=== PATIENT | female | born 1945 | race Caucasian/White ===

== ENCOUNTER 2018-11-29 17:16 | Inpatient (IN) | payer MEDICARE, BC ==
[~2018-11-29] VITALS: Ht 162.6 cm; Wt 95.3 kg
[2018-11-29] MEDS ORDERED: HYDROCODON-ACE1 EA10 PO (18:00)
[2018-11-29] MEDS ORDERED: PHENERGAN25 M1 (18:00)
[2018-11-29] MEDS ORDERED: VITAMIN B-121000 MCG PO (18:00)
[2018-11-29] MEDS ORDERED: CELEXA40 MG PO (18:01)
[2018-11-29] MEDS ORDERED: KLOR-CON 1010 MEQ PO (18:01)
[2018-11-29] MEDS ORDERED: ALDACTONE25 MG PO (18:01)
[2018-11-29] MEDS ORDERED: ZYLOPRIM300 MG PO (18:01)
[2018-11-29] MEDS ORDERED: PEPCID40 MG PO (18:02)
[2018-11-29] MEDS ORDERED: DONEPEZIL HCL10 MG PO (18:02)
[2018-11-29] MEDS ORDERED: CYTOTEC100 MCG PO (18:02)
[2018-11-29] MEDS ORDERED: BUSPAR10 MG PO (18:02)
[2018-11-29] MEDS ORDERED: VOLTAREN75 MG PO (18:03)
[2018-11-29] MEDS ORDERED: COLCRYS0.6 MG PO (18:03)
[2018-11-29] MEDS ORDERED: FERROUS SULFAT325 MG PO (18:03)
[2018-11-29] MEDS ORDERED: SYNTHROID200 MC1 PO (18:04)
[2018-11-29] MEDS ORDERED: CALCIUM 600 +1 EAC3 PO (18:05)
[2018-11-29] MEDS ORDERED: BUMEX2 MG (18:05)
[2018-11-29] MEDS ORDERED: NYSTATIN15 GM TOPICAL (18:05)
[2018-11-29] MEDS ORDERED: ASPIRIN325 MG PO (18:05)
[2018-11-29] MEDS ORDERED: NEURONTIN 300300 MG PO (18:06)
[2018-11-29] MEDS ORDERED: FOLIC ACID0.8 MG PO (18:06)
[2018-11-29] MEDS ORDERED: COLACE100 MG PO (18:06)
[2018-11-29 18:08] LABS: BASOPHILS 0.2 % (0-2); EOSINOPHILS 0.1 % (0-7); HEMATOCRIT 40.2 % (36.0-48.0); HEMOGLOBIN 13.5 g/dL (12-16); IMMATURE GRANULOCYTES 0.2 % (0-5); LYMPHOCYTES 6.4 % (15-50); MCH 30.5 pg (26.0-34.0); MCHC 33.6 g/dL (31.0-37.0); MEAN PLATELET VOLUME 10.5 fL (7.4-10.4); MONOCYTES 7.3 % (2-11); NEUTROPHILS 85.8 % (40-80); RBC 4.42 10x6/uL (4.00-5.40); RDW 13.6 % (11.5-14.5); WBC 12.5 10x3/uL (4.8-10.8)
[2018-11-29 18:20] LABS: PLATELET COUNT 145 10x3/uL (130-400)
[2018-11-29 18:24] LABS: APTT 34.6 SECONDS (22.8-39.4); INR 1.27 (0.85-1.17); PROTIME 15.3 SECONDS (11.6-15.0)
[2018-11-29 18:30] LABS: ALBUMIN 2.6 g/dL (3.4-5.0); ALKALINE PHOSPHATASE 130 U/L (46-116); ALT (SGPT) 24 U/L (10-68); BILIRUBIN - TOTAL 0.82 mg/dL (0.2-1.3); CALC OSMOLALITY 272 mosm/kg (275-300); CALCIUM 8.4 mg/dL (8.5-10.1); CARBON DIOXIDE 27.7 mmol/L (21.0-32.0); CHLORIDE - SERUM 99 mmol/L (98-107); CREATININE - SERUM 0.7 mg/dL (0.6-1.3); GLUCOSE 116 mg/dL (74-106); POTASSIUM - SERUM 3.9 mmol/L (3.5-5.1); PROTEIN - SERUM 6.1 g/dL (6.4-8.2); SODIUM 136 mmol/L (136-145); UREA NITROGEN 12 mg/dL (7-18); eGFR NON AFRICAN AMERICAN 86 mL/min (90-120)
[2018-11-29 18:41] LABS: CKMB 0.2 U/L (0.0-3.6); CREATINE KINASE 60 UL (21-215); PRO BNP 790 pg/mL (0-450); TROPONIN-I < 0.017 ng/mL (0.000-0.060)
--- NOTE | 2018-11-29 19:16 | NUR ---
RT AT BEDSIDE FOR [place]IL[place]AM[place].
[2018-11-29 19:58] VITALS: BP 159/72
[2018-11-29 21:32] VITALS: BP 150/82; BMI 36.1
--- NOTE | 2018-11-29 21:57 | NUR ---
RECEIVED TO ROOM. AWAKE,ALERT.COMPLAINTS SOB AND PNEUMONIA. O2 @ 2L PER NC ON. NO DISTRESS NOTED. SL TO RFA WITHOUT REDNESS OR EDEMA NOTED. ORIENTED TO ROOM. CL IN REACH
[2018-11-30 01:14] VITALS: BP 140/72
[2018-11-30 05:14] LABS: APPEARANCE CLEAR (CLEAR); BILIRUBIN NEGATIVE (NEGATIVE); COLOR YELLOW (YELLOW); GLUCOSE NEGATIVE (NEGATIVE); KETONE SMALL mg/dL (NEGATIVE); NITRITE NEGATIVE (NEGATIVE); PROTEIN NEGATIVE (NEGATIVE); UROBILINOGEN NORMAL (NORMAL)
[2018-11-30 05:38] VITALS: BP 144/80
[2018-11-30 07:34] VITALS: BMI 36.0
[2018-11-30 07:59] LABS: BASOPHILS 0 % (0-2); EOSINOPHILS 0 % (0-7); HEMATOCRIT 40.7 % (36.0-48.0); HEMOGLOBIN 13.6 g/dL (12-16); IMMATURE GRANULOCYTES 0.2 % (0-5); LYMPHOCYTES 3.8 % (15-50); MCH 30.6 pg (26.0-34.0); MCHC 33.4 g/dL (31.0-37.0); MCV 91.7 fL (80.0-100.0); MEAN PLATELET VOLUME 10.6 fL (7.4-10.4); MONOCYTES 1.7 % (2-11); NEUTROPHILS 94.3 % (40-80); PLATELET COUNT 160 10x3/uL (130-400); RBC 4.44 10x6/uL (4.00-5.40); RDW 13.8 % (11.5-14.5); WBC 13.3 10x3/uL (4.8-10.8)
[2018-11-30 08:22] LABS: ALBUMIN 2.5 g/dL (3.4-5.0); ALKALINE PHOSPHATASE 132 U/L (46-116); ALT (SGPT) 26 U/L (10-68); BILIRUBIN - TOTAL 0.37 mg/dL (0.2-1.3); CALC OSMOLALITY 281 mosm/kg (275-300); CALCIUM 9.3 mg/dL (8.5-10.1); CARBON DIOXIDE 30.5 mmol/L (21.0-32.0); CHLORIDE - SERUM 101 mmol/L (98-107); CREATININE - SERUM 0.7 mg/dL (0.6-1.3); GLUCOSE 147 mg/dL (74-106); MAGNESIUM - SERUM 2.2 mg/dL (1.8-2.4); PHOSPHOROUS 3.2 mg/dL (2.5-4.9); PRO BNP 405 pg/mL (0-450); PROTEIN - SERUM 6.3 g/dL (6.4-8.2); SODIUM 139 mmol/L (136-145); UREA NITROGEN 14 mg/dL (7-18); eGFR NON AFRICAN AMERICAN 86 mL/min (90-120)
[2018-11-30 09:40] VITALS: BP 132/72
--- NOTE | 2018-11-30 12:27 | NUR ---
Profore wraps removed from bilateral lower legs. Skin cleaned and dried. Legs elevated. Pt goes to [facility] wound clinic every other week for wrap changes. Pt states they are used for swelling. There are no open wounds. Plan is to keep wraps off while in hospital and keep legs elevated so edema doesn't return. She will then return to wound clinic after her discharge.
[2018-11-30 13:03] VITALS: BP 153/86
--- NOTE | 2018-11-30 13:53 | NUR ---
PATIENT BACK IN BED. LEGS ELEVATED ON PILLOW AND WITH BED CONTROLS. CL AND PHONE IN REACH. NO FURTHER NEEDS AT THIS TIME.
[2018-11-30 16:26] VITALS: BP 163/77
[2018-11-30 20:26] VITALS: BP 159/77
--- NOTE | 2018-12-01 | NUR ---
RIGHT FOREARM IV TENDER AND DIFFICULT TO FLUSH. REMOVED CATHETER INTACT. RESITED 22 G TO RIGHT FOREARM 1ST ATTEMPT. ASSISTED PT UP TO BATHROOM TO VOID AND HAD MEDIUM LOOSE STOOL. NO OTHER NEEDS. WILL CONTINUE TO MONITOR.
[2018-12-01 00:48] VITALS: BP 126/75
[2018-12-01 05:05] LABS: BASOPHILS 0 % (0-2); EOSINOPHILS 0 % (0-7); HEMOGLOBIN 13.2 g/dL (12-16); IMMATURE GRANULOCYTES 0.2 % (0-5); LYMPHOCYTES 5.3 % (15-50); MCH 30.7 pg (26.0-34.0); MCHC 33.8 g/dL (31.0-37.0); MCV 90.7 fL (80.0-100.0); MEAN PLATELET VOLUME 10.8 fL (7.4-10.4); MONOCYTES 2.6 % (2-11); NEUTROPHILS 91.9 % (40-80); PLATELET COUNT 178 10x3/uL (130-400); RDW 13.5 % (11.5-14.5); WBC 14.4 10x3/uL (4.8-10.8)
[2018-12-01 05:17] VITALS: BP 157/78
[2018-12-01 05:23] LABS: CALC OSMOLALITY 281 mosm/kg (275-300); CALCIUM 8.9 mg/dL (8.5-10.1); CARBON DIOXIDE 31.2 mmol/L (21.0-32.0); CHLORIDE - SERUM 101 mmol/L (98-107); CREATININE - SERUM 0.7 mg/dL (0.6-1.3); GLUCOSE 158 mg/dL (74-106); MAGNESIUM - SERUM 1.9 mg/dL (1.8-2.4); SODIUM 138 mmol/L (136-145); UREA NITROGEN 20 mg/dL (7-18); eGFR NON AFRICAN AMERICAN 86 mL/min (90-120)
[2018-12-01 08:08] VITALS: BP 143/73
--- NOTE | 2018-12-01 11:12 | NUR ---
PT ALERT X 4. BREATH SOUNDS DIMINISHED TO RLL, 2L O2 PER NC, NON-PRODUCTIVE COUGH. TELEMETRY IN PLACE. IV TO RIGHT WRIST, SALINE LOCKED. PT REPORTING NO PAIN AT THIS TIME. BED LOW, CALL LIGHT IN REACH. NO OTHER NEEDS AT THIS TIME.
[2018-12-01 12:24] VITALS: BP 113/57
[2018-12-01 17:24] VITALS: BP 107/55
[2018-12-01 20:58] VITALS: BP 147/75
[2018-12-02 00:48] VITALS: BP 154/69
[2018-12-02 05:24] VITALS: BP 174/85
[2018-12-02 05:33] LABS: BASOPHILS 0 % (0-2); EOSINOPHILS 0 % (0-7); HEMATOCRIT 38.7 % (36.0-48.0); HEMOGLOBIN 12.6 g/dL (12-16); IMMATURE GRANULOCYTES 0.6 % (0-5); LYMPHOCYTES 5.9 % (15-50); MCH 29.6 pg (26.0-34.0); MCHC 32.6 g/dL (31.0-37.0); MCV 91.1 fL (80.0-100.0); MONOCYTES 2.6 % (2-11); NEUTROPHILS 90.9 % (40-80); PLATELET COUNT 201 10x3/uL (130-400); RBC 4.25 10x6/uL (4.00-5.40); RDW 13.7 % (11.5-14.5); WBC 10.8 10x3/uL (4.8-10.8)
[2018-12-02 05:42] LABS: CALC OSMOLALITY 285 mosm/kg (275-300); CALCIUM 8.5 mg/dL (8.5-10.1); CARBON DIOXIDE 31.7 mmol/L (21.0-32.0); CHLORIDE - SERUM 102 mmol/L (98-107); CREATININE - SERUM 0.7 mg/dL (0.6-1.3); GLUCOSE 134 mg/dL (74-106); MAGNESIUM - SERUM 1.8 mg/dL (1.8-2.4); PHOSPHOROUS 3.7 mg/dL (2.5-4.9); SODIUM 141 mmol/L (136-145); UREA NITROGEN 22 mg/dL (7-18); eGFR NON AFRICAN AMERICAN 86 mL/min (90-120)
[2018-12-02 08:34] VITALS: BP 154/64
--- NOTE | 2018-12-02 10:02 | NUR ---
PT ALERT X 4. BREATH SOUNDS DIMINISHED TO LOWER LOBES, 2L O2 PER NC. TELEMETRY IN PLACE. IV TO RIGHT WRIST, PATENT, DRESSING CDI. PT REPORTING PAIN OF 6/10, WILL MONITOR. FEET ELEVATED. BED LOW, CALL LIGHT IN REACH. NO OTHER NEEDS AT THIS TIME.
[2018-12-02 12:14] VITALS: BP 139/73
--- NOTE | 2018-12-02 12:55 | MORECARE ---
CASE MANAGEMENT DISCHARGE SUMMARY PATIENT: ULYSSES ESTRADA UNIT: [id number] ADM DATE: 11/29/18 AGE: 73 : 43 SEX: F ROOM/BED: D.2214 AUTHOR: AMANDA SHERWOOD PHYSICIAN: REFERRING PHYSICIAN: ROSANA SPEAR MD DATE OF SERVICE: 12/02/18 Discharge Plan Patient Name: ULYSSES ESTRADA Facility: [facility]:[place] : 1945 Planned Disposition: Home Hlth Svc w Plan Readm Anticipated Discharge Date: Discharge Date: Expected LOS: Initial Reviewer: [email or web address] Initial Review Date: 12/02/2018 Generated: 12/02/18 1:55 pm Comments DCP- Discharge Planning Updated by [id number]: Dea Vaca on 12/02/18 11:[address] Patient Name: ULYSSES ESTRADA Admission Status: ER Accout number: [id number] Admission Date: 11-29-2018 : 1945 Admission Diagnosis: Attending: ROSANA SPEAR Current LOS: 3 Anticipated DC Date: Planned Disposition: Home Hlth Svc w Plan Readm Primary Insurance: MEDICARE A & B Discharge Planning Comments: CM met with patient at bedside after explaining CM role and obtaining verbal consent. CM discussed availability / needs of home health and medical equipment. [facility] has a walker at home and [facility] with [facility]. [facility] would like to resume [facility]. Lives at home and has a roommate. Environment is safe. CM to follow and assist. Career Services Officer: Dea Vaca DCPIA - Discharge Planning Initial Assessment Updated by [email or web address]: Dea Vaca on 12/02/18 12:50 pm * Is the patient Alert and Oriented? Yes * PCP BRYAN * Pharmacy [facility] * Preadmission Environment Home with Family * ADLs Independent * Other Equipment WALKER * Community resources currently utilized Home Health * Please name any agencies selected above. [facility] * Additional services required to return to the preadmission environment? No * Can the patient safely return to the preadmission environment? Yes * Has this patient been hospitalized within the prior 30 days at any hospital? No Patient Name: ULYSSES ESTRADA Page [phone] at 1255 All edits/amendments must be made on the electronic document DICTATION DATE: 12/02/18 1255 HEMATOLOGY NURSE: KAMALJIT 12/02/18 1258 RPT#: [id number] DC DATE: STATUS: ADM IN [facility] [address] [place] [address] END OF REPORT
[2018-12-02 17:04] VITALS: BP 140/59
[2018-12-02 20:00] VITALS: BP 164/78
--- NOTE | 2018-12-02 21:00 | NUR ---
PT A/O WITH NO SIGNS OF ACUTE DISTRESS. NC @ 2L AND IV TO RT WRIST, CDI. FEET ELEVATED ON PILLOW. PT DENIES PAIN OR OTHER NEEDS AT THIS TIME. CONTIUE WITH PLAN OF CARE.
[2018-12-03] VITALS: BP 144/69
[2018-12-03 05:28] VITALS: BP 110/74
[2018-12-03 08:12] LABS: BASOPHILS 0.1 % (0-2); EOSINOPHILS 0 % (0-7); HEMATOCRIT 42.3 % (36.0-48.0); IMMATURE GRANULOCYTES 1.6 % (0-5); LYMPHOCYTES 8.9 % (15-50); MCH 30.2 pg (26.0-34.0); MCHC 33.1 g/dL (31.0-37.0); MCV 91.2 fL (80.0-100.0); MEAN PLATELET VOLUME 10.6 fL (7.4-10.4); MONOCYTES 2.7 % (2-11); NEUTROPHILS 86.7 % (40-80); PLATELET COUNT 204 10x3/uL (130-400); RBC 4.64 10x6/uL (4.00-5.40); RDW 13.6 % (11.5-14.5); WBC 9.8 10x3/uL (4.8-10.8)
[2018-12-03 08:26] LABS: CALC OSMOLALITY 270 mosm/kg (275-300); CALCIUM 8.6 mg/dL (8.5-10.1); CARBON DIOXIDE 36.1 mmol/L (21.0-32.0); CHLORIDE - SERUM 98 mmol/L (98-107); CREATININE - SERUM 0.7 mg/dL (0.6-1.3); GLUCOSE 130 mg/dL (74-106); MAGNESIUM - SERUM 1.8 mg/dL (1.8-2.4); PHOSPHOROUS 3.8 mg/dL (2.5-4.9); POTASSIUM - SERUM 3.7 mmol/L (3.5-5.1); SODIUM 133 mmol/L (136-145); UREA NITROGEN 21 mg/dL (7-18); VANCOMYCIN - TROUGH 11.6 ug/mL (10.0-20.0); eGFR NON AFRICAN AMERICAN 86 mL/min (90-120)
[2018-12-03 08:55] VITALS: BP 157/69
--- NOTE | 2018-12-03 09:28 | NUR ---
Nutrition follow-up: Diet: heart healthy PO intake 50-75% of meals Labs reviewed WT: 209# Will continue to provide food choices and honor food preferences RDN following.
--- NOTE | 2018-12-03 10:10 | NUR ---
PT ALERT X 4. BREATH SOUNDS DIMINISHED TO RLL, 2L O2 PER NC. IV TO RIGHT WRIST, PATENT, DRESSING CDI. PT REPORTING PAIN OF 8/10, MEDICATED PER ORDERS, WILL MONITOR. FEET ELEVATED. TELEMETRY IN PLACE. BED LOW, CALL LIGHT IN REACH. NO OTHER NEEDS AT THIS TIME.
[2018-12-03 12:27] VITALS: BP 155/82
[2018-12-03 16:25] VITALS: BP 147/67
[2018-12-03 20:00] VITALS: BP 143/71
[2018-12-04 00:59] VITALS: BP 163/80
--- NOTE | 2018-12-04 02:02 | NUR ---
PT RESTING IN BED. EYES CLOSED. NO SIGNS OF DISTRESS. BREATHING EVEN AND UNLABORED. IV SITE RT FA DRESSING CLEAN DRY AND INTACT. NO SIGNS OF INFECTION. 2LO2 NASAL CANNULA. BOWEL SOUNDS ACTIVE. SKIN CLEAN DRY AND INTACT. LEG ELEVATED. WILL CONTINUE PLAN OF CARE. CALL LIGHT IN REACH. BED LOWERED AND LOCKED. BED RAILS UPX2.
--- NOTE | 2018-12-04 04:24 | NUR ---
I have reviewed this patient and I concur with the Shift Assessment completed by the Licensed Practical Nurse today this shift.
[2018-12-04 04:50] LABS: BASOPHILS 0.1 % (0-2); EOSINOPHILS 0 % (0-7); HEMATOCRIT 39.8 % (36.0-48.0); HEMOGLOBIN 13.1 g/dL (12-16); IMMATURE GRANULOCYTES 2.7 % (0-5); LYMPHOCYTES 7.1 % (15-50); MCH 29.8 pg (26.0-34.0); MCHC 32.9 g/dL (31.0-37.0); MCV 90.7 fL (80.0-100.0); MEAN PLATELET VOLUME 10.8 fL (7.4-10.4); MONOCYTES 2.3 % (2-11); NEUTROPHILS 87.8 % (40-80); PLATELET COUNT 218 10x3/uL (130-400); RBC 4.39 10x6/uL (4.00-5.40); RDW 13.3 % (11.5-14.5); WBC 11.3 10x3/uL (4.8-10.8)
[2018-12-04 05:06] LABS: CALC OSMOLALITY 282 mosm/kg (275-300); CALCIUM 8.4 mg/dL (8.5-10.1); CHLORIDE - SERUM 101 mmol/L (98-107); CREATININE - SERUM 0.7 mg/dL (0.6-1.3); GLUCOSE 157 mg/dL (74-106); PHOSPHOROUS 3.6 mg/dL (2.5-4.9); SODIUM 138 mmol/L (136-145); UREA NITROGEN 25 mg/dL (7-18); eGFR NON AFRICAN AMERICAN 86 mL/min (90-120)
[2018-12-04 05:08] VITALS: BP 160/76
--- NOTE | 2018-12-04 07:38 | NUR ---
ALERT AND ORIENTED. LUNGS SLIGHTLY DIMINISHED BILATERALLY. HEART SOUNDS S1 AND S2 HEARD IN ALL SANCHEZ. BOWEL SOUNDS ACTIVE X 4. SKIN INTACT WITHOUT REDNESS. IV TO RFA SL PATENT WITHOUT REDNESS. O2 IN PLACE AT 2L. TELEMETRY IN PLACE. DENIES PAIN. DENIES NEEDS. BED LOW. CALL HENNING AND PERSONAL ITEMS IN REACH. WILL CONTINUE TO MONITOR.
[2018-12-04 08:56] VITALS: BP 150/66
--- NOTE | 2018-12-04 10:41 | NUR ---
SITTING IN CHAIR AT BEDSIDE. DENIES NEEDS. WILL CONTINUE TO MONITOR.
--- NOTE | 2018-12-04 12:44 | NUR ---
EDUCATION PROVIDED ON NEED FOR SPUTUM. COLLECTION CONTAINER PLACED IN ROOM. VERBALIZED UNDERSTANDING.
--- NOTE | 2018-12-04 12:54 | NUR ---
SITTING IN CHAIR AT BEDSIDE. DENIES PAIN. DENIES NEEDS. FRIEND IN ROOM. WILL CONTINUE TO MONITOR.
[2018-12-04 12:55] VITALS: BP 177/80
--- NOTE | 2018-12-04 15:45 | NUR ---
RESTING IN BED. DENIES PAIN. DENIES NEEDS. WILL CONTINUE TO MONITOR.
[2018-12-04 16:45] VITALS: BP 149/71
[2018-12-04 20:00] VITALS: BP 155/70
[2018-12-05] VITALS: BP 173/86
--- NOTE | 2018-12-05 03:27 | NUR ---
PT RESTING IN BED. EYES CLOSED. NO SINGS OF DISTRESS. BREATHING EVEN AND UNLABORED. IV SITE RT FA DRESSING CLEAN DRY AND INTACT. NO SIGNS OF INFECTION. SKIN CLEAN DRY AND INTACT. 2LO2 NASAL CANNULA. BOWEL SOUNDS ACTIVE. TELE MONITOR ON 45 SIN[address] K[address]EB. WILL CONTINUE PLAN OF CARE. CALL LIGHT IN REACH. BED LOWERED AND LOCKED. BED RAILS UP X2.
[2018-12-05 04:00] VITALS: BP 140/71
--- NOTE | 2018-12-05 04:34 | NUR ---
I have reviewed this patient and I concur with the Shift Assessment completed by the Licensed Practical Nurse today this shift.
[2018-12-05 06:14] LABS: BASOPHILS 0.1 % (0-2); EOSINOPHILS 0.3 % (0-7); HEMATOCRIT 40.2 % (36.0-48.0); HEMOGLOBIN 13.5 g/dL (12-16); IMMATURE GRANULOCYTES 4.2 % (0-5); LYMPHOCYTES 9.6 % (15-50); MCH 30.2 pg (26.0-34.0); MCHC 33.6 g/dL (31.0-37.0); MCV 89.9 fL (80.0-100.0); MEAN PLATELET VOLUME 10.8 fL (7.4-10.4); MONOCYTES 7.3 % (2-11); NEUTROPHILS 78.5 % (40-80); PLATELET COUNT 218 10x3/uL (130-400); RBC 4.47 10x6/uL (4.00-5.40); RDW 13.4 % (11.5-14.5)
[2018-12-05 06:17] LABS: WBC 17.2 10x3/uL (4.8-10.8)
[2018-12-05 06:26] LABS: CALC OSMOLALITY 283 mosm/kg (275-300); CARBON DIOXIDE 29.1 mmol/L (21.0-32.0); CHLORIDE - SERUM 104 mmol/L (98-107); CREATININE - SERUM 0.7 mg/dL (0.6-1.3); MAGNESIUM - SERUM 2.1 mg/dL (1.8-2.4); PHOSPHOROUS 3.4 mg/dL (2.5-4.9); POTASSIUM - SERUM 4.3 mmol/L (3.5-5.1); SODIUM 140 mmol/L (136-145); UREA NITROGEN 26 mg/dL (7-18); eGFR NON AFRICAN AMERICAN 86 mL/min (90-120)
[2018-12-05 06:27] LABS: GLUCOSE 90 mg/dL (74-106)
[2018-12-05 07:59] VITALS: BP 136/79
--- NOTE | 2018-12-05 10:50 | NUR ---
PT RESTING IN BED. NO SIGNS OF DISTRESS. IV TO RIGHT FORARM PATENT NO REDNESS OR TENDERNESS. ON 2L NC. ON TELEMETRY 67 SR. DENIES ANY FURTHER NEED AT THIS TIME. CALL LIGHT IN REACH. BED LOW POSITION. NO FAMILY AT BEDSIDE AT THIS TIME.
[2018-12-05 11:10] LABS: IMMUNOGLOBULIN A 106 mg/dL (64-422); IMMUNOGLOBULIN G 401 mg/dL (700-1600)
[2018-12-05 11:55] VITALS: BP 147/78
[2018-12-05 16:01] VITALS: BP 131/81
--- NOTE | 2018-12-05 19:04 | NUR ---
I have reviewed this patient and I concur with the Shift Assessment completed by the Licensed Practical Nurse today this shift.
[2018-12-05 21:09] VITALS: BP 134/80
[2018-12-06] VITALS (7 sets, daily range): BP systolic 128–154; BP diastolic 57–79; Ht 162.6 cm; Wt 95.3 kg
--- NOTE | 2018-12-06 04:12 | NUR ---
I have reviewed this patient and I concur with the Shift Assessment completed by the Licensed Practical Nurse today this shift.
--- NOTE | 2018-12-06 04:36 | NUR ---
PT RESTING IN BED. EYES CLOSED. NO SIGNS OF DISTRESS. BREATHING EVEN AND UNLABORED. IV SITE RT FA DRESSING CLEAN DRY AND INTACT. NO SIGNS OF INFECTION. 2LO2 NASAL CANNULA. TELE MONITOR ON 65 SINUS. BOWEL SOUNDS ACTIVE. NO LOWER LEG SWELLING PRESENT. LEG ELEVATED ON PILLOWS. WILL CONITNUE PLAN OF CARE. CALL LIGHT IN REACH. BED LOWERED AND LOCKED. BED RAILS UPX2.
[2018-12-06 06:43] LABS: HEMATOCRIT 38.1 % (36.0-48.0); HEMOGLOBIN 12.4 g/dL (12-16); MCH 29.7 pg (26.0-34.0); MCHC 32.5 g/dL (31.0-37.0); MCV 91.4 fL (80.0-100.0); MEAN PLATELET VOLUME 10.7 fL (7.4-10.4); PLATELET COUNT 230 10x3/uL (130-400); RBC 4.17 10x6/uL (4.00-5.40); RDW 13.7 % (11.5-14.5); WBC 13.5 10x3/uL (4.8-10.8)
[2018-12-06 07:15] LABS: ALBUMIN 2.2 g/dL (3.4-5.0); ALKALINE PHOSPHATASE 100 U/L (46-116); ALT (SGPT) 51 U/L (10-68); BILIRUBIN - TOTAL 0.34 mg/dL (0.2-1.3); CALC OSMOLALITY 282 mosm/kg (275-300); CALCIUM 7.6 mg/dL (8.5-10.1); CARBON DIOXIDE 34.2 mmol/L (21.0-32.0); CHLORIDE - SERUM 103 mmol/L (98-107); CREATININE - SERUM 0.6 mg/dL (0.6-1.3); GLUCOSE 79 mg/dL (74-106); POTASSIUM - SERUM 3.6 mmol/L (3.5-5.1); PROTEIN - SERUM 4.5 g/dL (6.4-8.2); SODIUM 141 mmol/L (136-145); UREA NITROGEN 22 mg/dL (7-18); VANCOMYCIN - RANDOM 16.4 ug/mL (10.0-20.0); eGFR NON AFRICAN AMERICAN > 90 mL/min (90-120)
--- NOTE | 2018-12-06 08:15 | NUR ---
0815 PATIENT ALERT AND ORIENTED. NO ACUTE DISTRESS NOTED. REPORTS PAIN 10/10 AND REQUESTS MOTRIN. WILL BE ADMINISTERED PER ORDERS. IV TO RIGHT WRIST, SALINE LOCKED. DENIES FURTHER NEEDS AT THIS TIME. ENCOURAGED TO CALL WITH NEEDS. CALL LIGHT WITHIN REACH. CONTINUE PLAN OF CARE.
[2018-12-06 09:00] LABS: EOSINOPHILS 6 % (0-7); LYMPHOCYTES 15 % (15-50); MONOCYTES 9 % (2-11); NEUTROPHILS 68 % (40-80); PLATELET ESTIMATE NORMAL
[2018-12-06 09:01] LABS: ANISOCYTOSIS OCC; HYPOCHROMASIA OCC
--- NOTE | 2018-12-06 11:47 | MORECARE ---
CASE MANAGEMENT DISCHARGE SUMMARY PATIENT: ULYSSES ESTRADA UNIT: [id number] ADM DATE: 11/29/18 AGE: 73 : 43 SEX: F ROOM/BED: D.2214 AUTHOR: AMANDA SHERWOOD PHYSICIAN: REFERRING PHYSICIAN: ROSANA SPEAR MD DATE OF SERVICE: 12/06/18 Discharge Plan Patient Name: ULYSSES ESTRADA Facility: [facility]:[place] : 1945 Planned Disposition: Home Hlth Svc w Plan Readm Anticipated Discharge Date: Discharge Date: Expected LOS: Initial Reviewer: [email or web address] Initial Review Date: 12/02/2018 Generated: 12/06/18 12:47 pm Comments DCP- Discharge Planning Updated by [email or web address]: Estefany Cook on 12/06/18 10:[address] IMM served and explained, DCP- Discharge Planning Updated by [email or web address]: Dea Vaca on 12/02/18 11:[address] Patient Name: ULYSSES ESTRADA Admission Status: ER Accout number: [id number] Admission Date: 11-29-2018 : 1945 Admission Diagnosis: Attending: ROSANA SPEAR Current LOS: 3 Anticipated DC Date: Planned Disposition: Home Hlth Svc w Plan Readm Primary Insurance: MEDICARE A & B Discharge Planning Comments: CM met with patient at bedside after explaining CM role and obtaining verbal consent. CM discussed availability / needs of home health and medical equipment. [facility] has a walker at home and is current with [facility]. [facility] would like to resume [facility]. Lives at home and has a roommate. Environment is safe. CM to follow and assist. Manager Integrated: Dea Vaca DCPIA - Discharge Planning Initial Assessment Updated by [email or web address]: Dea Vaca on 12/02/18 12:50 pm * Is the patient Alert and Oriented? Yes * PCP BRYAN * Pharmacy [facility] * Preadmission Environment Home with Family * ADLs Independent * Other Equipment WALKER * Community resources currently utilized Home Health * Please name any agencies selected above. [facility] * Additional services required to return to the preadmission environment? No * Can the patient safely return to the preadmission environment? Yes * Has this patient been hospitalized within the prior 30 days at any hospital? No Coverage Notice Reviewer: [id number] Chaparro Cook Notice Issued Date-Time: 12/06/2018 9:25 Notice Type: IM Discharge Notice Notice Delivered To: Patient Relationship to Patient: Diesel Powerplant Supervisor Name: Delivery Method: HAND - Hand Delivered Ghazal Days: Prior Verbal Notification: Recipient Understood Notice: Yes Recipient Signature: Yes Med Rec Note Co-signed by Attending: Coverage Notice Comment: Reviewer: [email or web address] Chaparro Cook Notice Issued Date-Time: 12/06/2018 9:25 Notice Type: Patient Choice Letter Notice Delivered To: Patient Relationship to Patient: Diesel Powerplant Supervisor Name: Delivery Method: - Ghazal Days: Prior Verbal Notification: Recipient Understood Notice: Yes Recipient Signature: Yes Med Rec Note Co-signed by Attending: Coverage Notice Comment: nini to continue [facility] and [facility] if O2 is needed Last DP export: 12/02/18 11:55 am Patient Name: ULYSSES ESTRADA Page [phone] at 1147 All edits/amendments must be made on the electronic document DICTATION DATE: 12/06/18 1147 STUDENT OFFICER: KAMALJIT 12/06/18 1147 RPT#: [id number] DC DATE: STATUS: ADM IN [facility] [address] [place] [address] END OF REPORT
--- NOTE | 2018-12-06 16:22 | MORECARE ---
CASE MANAGEMENT DISCHARGE SUMMARY PATIENT: ULYSSES ESTRADA UNIT: [id number] ADM DATE: 11/29/18 AGE: 73 : 43 SEX: F ROOM/BED: D.2214 AUTHOR: AMANDA SHERWOOD PHYSICIAN: REFERRING PHYSICIAN: ROSANA SPEAR MD DATE OF SERVICE: 12/06/18 Discharge Plan Patient Name: ULYSSES ESTRADA Facility: [facility]:[place] : 1945 Planned Disposition: Home Hlth Svc w Plan Readm Anticipated Discharge Date: Discharge Date: Expected LOS: Initial Reviewer: [email or web address] Initial Review Date: 12/02/2018 Generated: 12/06/18 5:22 pm Comments DCP- Discharge Planning Updated by [id number]: Estefany Cook on 12/06/18 10:[address] IMM served and explained, DCP- Discharge Planning Updated by [id number]: Dea Vaca on 12/02/18 11:[address] Patient Name: ULYSSES ESTRADA Admission Status: ER Accout number: [id number] Admission Date: 11-29-2018 : 1945 Admission Diagnosis: Attending: ROSANA SPEAR Current LOS: 3 Anticipated DC Date: Planned Disposition: Home Hlth Svc w Plan Readm Primary Insurance: MEDICARE A & B Discharge Planning Comments: CM met with patient at bedside after explaining CM role and obtaining verbal consent. CM discussed availability / needs of home health and medical equipment. [facility] has a walker at home and is current with [facility]. [facility] would like to resume [facility]j. Lives at home and has a roommate. Environment is safe. CM to follow and assist. Gerontology Aide: Dea Vaca DCPIA - Discharge Planning Initial Assessment Updated by [email or web address]: Dea Vaca on 12/02/18 12:50 pm * Is the patient Alert and Oriented? Yes * PCP BRYAN * Pharmacy [facility] * Preadmission Environment Home with Family * ADLs Independent * Other Equipment WALKER * Community resources currently utilized Home Health * Please name any agencies selected above. [facility] * Additional services required to return to the preadmission environment? No * Can the patient safely return to the preadmission environment? Yes * Has this patient been hospitalized within the prior 30 days at any hospital? No External Providers External Provider: [facility] Next Contact Date: Service Request Date: Service Type: Resolution: Reviewer: Comments: Coverage Notice Reviewer: [email or web address] Chaparro Cook Notice Issued Date-Time: 12/06/2018 9:25 Notice Type: IM Discharge Notice Notice Delivered To: Patient Relationship to Patient: Multi Line Claims Adjuster Name: Delivery Method: HAND - Hand Delivered Ghazal Days: Prior Verbal Notification: Recipient Understood Notice: Yes Recipient Signature: Yes Med Rec Note Co-signed by Attending: Coverage Notice Comment: Reviewer: [email or web address] Chaparro Cook Notice Issued Date-Time: 12/06/2018 9:25 Notice Type: Patient Choice Letter Notice Delivered To: Patient Relationship to Patient: Multi Line Claims Adjuster Name: Delivery Method: - Ghazal Days: Prior Verbal Notification: Recipient Understood Notice: Yes Recipient Signature: Yes Med Rec Note Co-signed by Attending: Coverage Notice Comment: nini to continue [facility] and [facility] if O2 is needed Last DP export: 12/06/18 10:47 am Patient Name: ULYSSES ESTRADA Page [id number] at 1622 All edits/amendments must be made on the electronic document DICTATION DATE: 12/06/181620 TACTICAL DECEPTION PLANS OFFICER: KAMALJIT 12/06/181620 RPT#: [id number] DC DATE: STATUS: ADM IN [facility] [address] [place] [address] END OF REPORT
[2018-12-06 17:08] LABS: IMMUNOGLOBULIN E 87 IU/mL (6-495)
--- NOTE | 2018-12-06 19:27 | NUR ---
IN BED WITH TV ON, IV TO LEFT WRIST INFUSING PER ORDERS, ON ROOM AIR, ABLE TO VOICE ALL NEEDS. DENIES PAIN AT THIS TIME. WILL NOTE ANY CHANGE.
[2018-12-06 21:06] LABS: IGG SUBCLASS 1 253 mg/dL (248-810); IGG SUBCLASS 2 72 mg/dL (130-555); IGG SUBCLASS 3 22 mg/dL (15-102); IGG SUBCLASS 4 3 mg/dL (2-96); IGGS - IGG SERUM 393 mg/dL (700-1600)
--- NOTE | 2018-12-06 23:03 | NUR ---
I have reviewed this patient and I concur with the Shift Assessment completed by the Licensed Practical Nurse today this shift.
[2018-12-07 00:36] VITALS: BP 142/80
--- NOTE | 2018-12-07 04:33 | NUR ---
RESTED WELL FROM AROUND 0200 TO THIS TIME, SHOWS NO S/S OF ANY ACUTE DISTRESS, ABLE TO VOICE ALL NEEDS. WILL NOTE ANY CHANGE.
[2018-12-07 04:55] VITALS: BP 131/55
[2018-12-07 07:01] LABS: ALBUMIN 2.5 g/dL (3.4-5.0); ALKALINE PHOSPHATASE 112 U/L (46-116); BILIRUBIN - TOTAL 0.41 mg/dL (0.2-1.3); CALC OSMOLALITY 282 mosm/kg (275-300); CALCIUM 8.2 mg/dL (8.5-10.1); CARBON DIOXIDE 35.6 mmol/L (21.0-32.0); CHLORIDE - SERUM 101 mmol/L (98-107); CREATININE - SERUM 0.7 mg/dL (0.6-1.3); GLUCOSE 114 mg/dL (74-106); POTASSIUM - SERUM 3.7 mmol/L (3.5-5.1); PROTEIN - SERUM 5.4 g/dL (6.4-8.2); SODIUM 140 mmol/L (136-145); UREA NITROGEN 21 mg/dL (7-18); eGFR NON AFRICAN AMERICAN 86 mL/min (90-120)
[2018-12-07 07:02] LABS: ALT (SGPT) 64 U/L (10-68)
[2018-12-07 07:39] LABS: HEMATOCRIT 39.2 % (36.0-48.0); HEMOGLOBIN 13.1 g/dL (12-16); MCH 30.1 pg (26.0-34.0); MCHC 33.4 g/dL (31.0-37.0); MCV 90.1 fL (80.0-100.0); MEAN PLATELET VOLUME 10.5 fL (7.4-10.4); PLATELET COUNT 238 10x3/uL (130-400); RBC 4.35 10x6/uL (4.00-5.40); RDW 13.7 % (11.5-14.5); WBC 12.2 10x3/uL (4.8-10.8)
--- NOTE | 2018-12-07 08:00 | NUR ---
0800 PATIENT ALERT AND ORIENTED, LYING IN BED. PATIENT STATES SHE HAS NO PAIN. HELPED PATIENT TO BEDSIDE COMODE. PATIENT STATES SHE FEELS DIZZY WHEN STANDING. PATIENT WAS TOLD TO USE HER CALL LIGHT WHEN PATIENT NEEDS ASSISTANCE BACK TO BED. FALL PRECAUTIONS IN PLACE.
[2018-12-07 08:04] VITALS: BP 84/48
[2018-12-07 08:16] LABS: EOSINOPHILS 4 % (0-7); LYMPHOCYTES 18 % (15-50); MONOCYTES 7 % (2-11); NEUTROPHILS 70 % (40-80); PLATELET ESTIMATE NORMAL
[2018-12-07 10:24] VITALS: BP 95/70
[2018-12-07 12:50] VITALS: BP 113/66
[2018-12-07] MEDS ORDERED: Nystatin Oral Susp [ PO (14:35)
[2018-12-07] MEDS ORDERED: ALBUTEROL2.5 MG/3 M INH (14:35)
[2018-12-07] MEDS ORDERED: LEVOFLOXACIN500 MG PO (14:35)
[2018-12-07] MEDS ORDERED: CLEOCIN HCL300 MG PO (14:35)
[2018-12-07] MEDS ORDERED: Tessalon Perle PO (14:36)
[2018-12-07] MEDS ORDERED: MUCINEX DM ER1 EAC1 PO (14:36)
[2018-12-07] MEDS ORDERED: Bumex PO (14:36)
[2018-12-07] MEDS ORDERED: FLUTICASONE PRO16 GM NASAL (14:36)
[2018-12-07] MEDS ORDERED: LOVENOX40 MG/0.4 SC (14:36)
[2018-12-07] MEDS ORDERED: IPRAT-ALBUT 0.5-3 ML UPD (14:36)
--- NOTE | 2018-12-07 14:36 | NUR ---
Rehab Note- Acute Inpatient Rehab prescreen order received.The patient is a good candidate for inpatient rehab. Will accept when ready for discharge from the acute hospital. Spoke with IZA Cerda. Thank you for this referral! Dalia Lee RN Clinical Liaison, [facility]
[2018-12-07] MEDS ORDERED: HUMALOG 30100 UNITS/ SC (14:37)
[2018-12-07] MEDS ORDERED: FLORAJEN3 CAPS460 MG PO (14:37)
[2018-12-07] MEDS ORDERED: PROTONIX40 MG PO (14:37)
[2018-12-07] MEDS ORDERED: Zovirax TOPICAL (14:37)
[2018-12-07] MEDS ORDERED: PREDNISONE10 MG PO (14:38)
--- NOTE | 2018-12-07 15:26 | MORECARE ---
CASE MANAGEMENT DISCHARGE SUMMARY PATIENT: ULYSSES ESTRADA UNIT: [id number] ADM DATE: 11/29/18 AGE: 73 : 43 SEX: F ROOM/BED: D.2214 AUTHOR: AMANDA SHERWOOD PHYSICIAN: REFERRING PHYSICIAN: ROSANA SPEAR MD DATE OF SERVICE: 12/07/18 Discharge Plan Patient Name: ULYSSES ESTRADA Facility: [facility]:[place] : 1945 Planned Disposition: Home Hlth Svc w Plan Readm Anticipated Discharge Date: Discharge Date: Expected LOS: Initial Reviewer: [email or web address] Initial Review Date: 12/02/2018 Generated: 12/07/18 4:26 pm Comments DCP- Discharge Planning Updated by [id number]: Estefany Cook on 12/07/18 2:[address] Patient discharging to inpatient rehab today at [facility] DCP- Discharge Planning Updated by [email or web address]: Estefany Cook on 12/06/18 10:[address] IMM served and explained, DCP- Discharge Planning Updated by [email or web address]: Dea Vaca on 12/02/18 11:[address] Patient Name: ULYSSES ESTRADA Admission Status: ER Accout number: [id number] Admission Date: 11-29-2018 : 1945 Admission Diagnosis: Attending: ROSANA SPEAR Current LOS: 3 Anticipated DC Date: Planned Disposition: Home Hlth Svc w Plan Readm Primary Insurance: MEDICARE A & B Discharge Planning Comments: CM met with patient at bedside after explaining CM role and obtaining verbal consent. CM discussed availability / needs of home health and medical equipment. [facility] has a walker at home and is [facility] with [facility]. [facility] would like to resume [facility]. Lives at home and has a roommate. Environment is safe. CM to follow and assist. Sizing Sprayer: Dea Vaca DCPIA - Discharge Planning Initial Assessment Updated by [id number]: Dea Vaca on 12/02/18 12:50 pm * Is the patient Alert and Oriented? Yes * PCP BRYAN * Pharmacy [facility] * Preadmission Environment Home with Family * ADLs Independent * Other Equipment WALKER * Community resources currently utilized Home Health * Please name any agencies selected above. [facility] * Additional services required to return to the preadmission environment? No * Can the patient safely return to the preadmission environment? Yes * Has this patient been hospitalized within the prior 30 days at any hospital? No Coverage Notice Reviewer: [id number] Chaparro Cook Notice Issued Date-Time: 12/06/2018 9:25 Notice Type: IM Discharge Notice Notice Delivered To: Patient Relationship to Patient: Knitted Cloth Examiner Name: Delivery Method: HAND - Hand Delivered Ghazal Days: Prior Verbal Notification: Recipient Understood Notice: Yes Recipient Signature: Yes Med Rec Note Co-signed by Attending: Coverage Notice Comment: Reviewer: [email or web address] Chaparro Cook Notice Issued Date-Time: 12/06/2018 9:25 Notice Type: Patient Choice Letter Notice Delivered To: Patient Relationship to Patient: Knitted Cloth Examiner Name: Delivery Method: - Ghazal Days: Prior Verbal Notification: Recipient Understood Notice: Yes Recipient Signature: Yes Med Rec Note Co-signed by Attending: Coverage Notice Comment: nini to continue [facility] and [facility] if O2 is needed Last DP export: 12/06/18 3:22 pm Patient Name: ULYSSES ESTRADA Page [phone] at 1526 All edits/amendments must be made on the electronic document DICTATION DATE: 12/07/181525 BUSINESS OBJECTS ANALYST: KAMALJIT 12/07/181525 RPT#: [id number] DC DATE: STATUS: ADM IN [facility] [address] [place] [address] END OF REPORT
--- NOTE | 2018-12-07 15:53 | NUR ---
OT NOTE: PT COMPLETED SITTING BALANCE WITH SBA. PT COMPLETED GROOMING TASK WITH SBA. PT IS MOTIVATED. THANK YOU, SELMA CONTRERAS
[2018-12-07 16:42] VITALS: BP 131/79
--- NOTE | 2018-12-07 20:40 | NUR ---
DC'D TO REHAB VIA WC
--- NOTE | 2018-12-11 10:01 | MORECARE ---
CASE MANAGEMENT DISCHARGE SUMMARY PATIENT: ULYSSES ESTRADA UNIT: [id number] ADM DATE: 11/29/18 AGE: 73 : 43 SEX: F ROOM/BED: D.2214 AUTHOR: AMANDA SHERWOOD PHYSICIAN: REFERRING PHYSICIAN: ROSANA SPEAR MD DATE OF SERVICE: 12/11/18 Discharge Plan Patient Name: ULYSSES ESTRADA Facility: [facility]:[place] : 1945 Planned Disposition: Home Hlth Svc w Plan Readm Anticipated Discharge Date: Discharge Date: 12/07/2018 Expected LOS: 0 Initial Reviewer: [email or web address] Initial Review Date: 12/02/2018 Generated: 12/11/18 11:00 am Comments DCP- Discharge Planning Updated by [email or web address]: Estefany Cook on 12/07/18 2:[address] Patient discharging to inpatient rehab today at [facility] DCP- Discharge Planning Updated by [email or web address]: Estefany Cook on 12/06/18 10:[address] IMM served and explained, DCP- Discharge Planning Updated by [email or web address]: Dea Vaca on 12/02/18 11:[address] Patient Name: ULYSSES ESTRADA Admission Status: ER Accout number: [id number] Admission Date: 11-29-2018 : 1945 Admission Diagnosis: Attending: ROSANA SPEAR Current LOS: 3 Anticipated DC Date: Planned Disposition: Home Hlth Svc w Plan Readm Primary Insurance: MEDICARE A & B Discharge Planning Comments: CM met with patient at bedside after explaining CM role and obtaining verbal consent. CM discussed availability / needs of home health and medical equipment. [facility] has a walker at home and is current with [facility]. [facility] would like to resume bravo. Lives at home and has a roommate. Environment is safe. CM to follow and assist. Flume Ride Operator: Dea Vaca DCPIA - Discharge Planning Initial Assessment Updated by [email or web address]: Dea Vaca on 12/02/18 12:50 pm * Is the patient Alert and Oriented? Yes * PCP [facility] * Pharmacy [facility] * Preadmission Environment Home with Family * ADLs Independent * Other Equipment WALKER * Community resources currently utilized Home Health * Please name any agencies selected above. [facility] * Additional services required to return to the preadmission environment? No * Can the patient safely return to the preadmission environment? Yes * Has this patient been hospitalized within the prior 30 days at any hospital? No Coverage Notice Reviewer: [id number] Chaparro Cook Notice Issued Date-Time: 12/06/2018 9:25 Notice Type: IM Discharge Notice Notice Delivered To: Patient Relationship to Patient: Older Adult Social Work Specialist Name: Delivery Method: HAND - Hand Delivered Ghazal Days: Prior Verbal Notification: Recipient Understood Notice: Yes Recipient Signature: Yes Med Rec Note Co-signed by Attending: Coverage Notice Comment: Reviewer: [id number] Chaparro Cook Notice Issued Date-Time: 12/06/2018 9:25 Notice Type: Patient Choice Letter Notice Delivered To: Patient Relationship to Patient: Older Adult Social Work Specialist Name: Delivery Method: - Ghazal Days: Prior Verbal Notification: Recipient Understood Notice: Yes Recipient Signature: Yes Med Rec Note Co-signed by Attending: Coverage Notice Comment: nini to continue bravo and [employer] if O2 is needed Last DP export: 12/07/18 2:26 pm Patient Name: ULYSSES ESTRADA Page [id number] at 1001 All edits/amendments must be made on the electronic document DICTATION DATE: 12/11/18 1000 DROP HAMMER SET UP OPERATOR: [email or web address] 12/11/18 1000 RPT#: [id number] DC DATE:12/07/18 STATUS: DIS IN [facility] [address] [place] [address] END OF REPORT
== END 2018-12-07 20:43 | DRG 177 ==
LOC: D.ER 17:16 → D.MS 20:10
PROVIDERS: Family Medicine; Internal Medicine Pulmonary Disease; ADMIT Internal Medicine Nephrology; ATTEND Internal Medicine Nephrology
DX: J15.6 Pneumonia due to other Gram-negative bacteria (principal); J96.01 Acute respiratory failure with hypoxia; J44.0 Chronic obstructive pulmonary disease with (acute) lower respiratory infection; J44.1 Chronic obstructive pulmonary disease with (acute) exacerbation; J15.4 Pneumonia due to other streptococci; I11.0 Hypertensive heart disease with heart failure; I50.9 Heart failure, unspecified; M54.9 Dorsalgia, unspecified; F41.8 Other specified anxiety disorders; E11.21 Type 2 diabetes mellitus with diabetic nephropathy; E03.9 Hypothyroidism, unspecified; E88.09 Other disorders of plasma-protein metabolism, not elsewhere classified; G47.33 Obstructive sleep apnea (adult) (pediatric); I95.1 Orthostatic hypotension

== ENCOUNTER 2018-12-07 17:48 | Inpatient (IN) | payer MEDICARE, BC ==
[~2018-12-07] VITALS: Ht 162.6 cm; Wt 95.3 kg
[~2018-12-07 17:48] MED LIST: ALBUTEROL2.5 MG/3 M INH; ALDACTONE25 MG PO; ASPIRIN325 MG PO; BUMEX2 MG; BUSPAR10 MG PO; Bumex PO; CALCIUM 600 +1 EAC3 PO; CELEXA40 MG PO; CLEOCIN HCL300 MG PO; COLACE100 MG PO; COLCRYS0.6 MG PO; CYTOTEC100 MCG PO; DONEPEZIL HCL10 MG PO; FERROUS SULFAT325 MG PO; FLORAJEN3 CAPS460 MG PO; FLUTICASONE PRO16 GM NASAL; FOLIC ACID0.8 MG PO; HUMALOG 30100 UNITS/ SC; HYDROCODON-ACE1 EA10 PO; IPRAT-ALBUT 0.5-3 ML UPD; KLOR-CON 1010 MEQ PO; LEVOFLOXACIN500 MG PO; LOVENOX40 MG/0.4 SC; MUCINEX DM ER1 EAC1 PO; NEURONTIN 300300 MG PO; NYSTATIN15 GM TOPICAL; Nystatin Oral Susp [ PO; PEPCID40 MG PO; PHENERGAN25 M1; PREDNISONE10 MG PO; PROTONIX40 MG PO; SYNTHROID200 MC1 PO; Tessalon Perle PO; VITAMIN B-121000 MCG PO; VOLTAREN75 MG PO; ZYLOPRIM300 MG PO; Zovirax TOPICAL
[2018-12-07 22:16] VITALS: BP 164/77; BMI 36.1
--- NOTE | 2018-12-07 22:50 | NUR ---
PATIENT ADMITTED FOR PHYSICAL REHAB AND SERVICES OF DR LUONG. AWAKE AND ALERT. ORIENTED X 4. STATES SHE WAS UPSTAIRS RELATED TO PNEUMONIA BUT SHE IS BETTER NOW. ORIENTED TO ROOM AND CALL LIGHT. SEE ADMISSION ASSESSMENT. ASSISTED TO BATHROOM AND HAD A LARGE BM. NOW RESTING IN BED WITH NO ACUTE DISTRESS NOTED.
--- NOTE | 2018-12-08 02:44 | NUR ---
AWAKE AND IN BED READING. RESPIRAIONS UNLABORED. NO DISTRESS NOTED. CALL LIGHT IN REACH.
--- NOTE | 2018-12-08 05:21 | NUR ---
AWAKE AND RESTING IN BED. HAS NOT SLEPT AT ALL TONIGHT. PATIENT STATES SHE DID NOT SLEEP LAST NIGHT EITHER AND THINKS ITS THE PREDNISONE AND/OR BREATHING TREATMENTS THAT ARE KEEPING HER AWAKE. MESSAGE LEFT ON ROUNDING SHEET FOR DR LUONG ABOUT HER INSOMNIA. CALL LIGHT IN REACH.
[2018-12-08 06:59] LABS: BASOPHILS 0.2 % (0-2); EOSINOPHILS 1.9 % (0-7); HEMATOCRIT 36.7 % (36.0-48.0); HEMOGLOBIN 12.1 g/dL (12-16); IMMATURE GRANULOCYTES 4.8 % (0-5); LYMPHOCYTES 25.8 % (15-50); MCH 29.7 pg (26.0-34.0); MCV 90.2 fL (80.0-100.0); MEAN PLATELET VOLUME 10.1 fL (7.4-10.4); MONOCYTES 6.3 % (2-11); RBC 4.07 10x6/uL (4.00-5.40); RDW 13.7 % (11.5-14.5); WBC 11.7 10x3/uL (4.8-10.8)
[2018-12-08 07:07] LABS: PLATELET COUNT 185 10x3/uL (130-400)
[2018-12-08 07:18] LABS: ANION GAP 9.4 mmol/L (8-16); CALCIUM 8.4 mg/dL (8.5-10.1); CARBON DIOXIDE 35.1 mmol/L (21.0-32.0); CREATININE - SERUM 0.8 mg/dL (0.6-1.3)
[2018-12-08 07:22] LABS: POTASSIUM - SERUM 4.5 mmol/L (3.5-5.1)
[2018-12-08 08:00] VITALS: BP 104/59
--- NOTE | 2018-12-08 08:00 | NUR ---
SHIFT ASSMT COMPLETED.BREAKFAST TRAY GIVEN.CL IN REACH.
--- NOTE | 2018-12-08 12:00 | NUR ---
SITTING UP IN BED EATING LUNCH.FAMILY VISITNG AT BEDSIDE.
[2018-12-08 12:08] VITALS: Ht 162.6 cm; Wt 95.3 kg
[2018-12-08 19:20] VITALS: BP 150/75
--- NOTE | 2018-12-08 19:26 | NUR ---
AWAKE AND ALERT. RESTING IN BED. RESPIRATIONS UNLABORED. LEFT FOREARM SALINE LOCK INTACT WITH NO SIGNS OF INFILTRATION. NO ACUTE DISTRESS NOTED. CALL LIGHT IN REACH.
--- NOTE | 2018-12-09 01:16 | NUR ---
RESTING IN BED WITH RESPIRTIONS UNLABORED. NO DISTRESS NOTED. CALL LIGHT IN REACH.
--- NOTE | 2018-12-09 06:23 | NUR ---
QUIET HOURS. SLEPT MOST OF SHIFT AND AFTER WAKING UP THIS AM STATED "I SURE DID SLEEP FINALLY. WHATEVER I TOOK LAST NIGHT I WANT AGAIN TONIGHT." PATIENT ALSO STATES SHE IS NOT GETTING DIZZY ANYMORE WHEN GETTING OUT OF BED. NOW RESTING IN BED WITH NO DISTRESS NOTED.
--- NOTE | 2018-12-09 08:00 | NUR ---
SHIFT ASSMT COMPLETED.DENIES NEEDS.BREAKFAST GIVEN.
--- NOTE | 2018-12-09 12:00 | NUR ---
UP OOB FOR LUNCH.CL IN REACH.
--- NOTE | 2018-12-09 16:00 | NUR ---
WENT TO RESTROOM AND BACK TO BED.CL IN REACH.
[2018-12-09 19:07] VITALS: BP 139/72
--- NOTE | 2018-12-09 19:14 | NUR ---
AWAKE AND ALERT. RESTING IN BED. NO ACUTE DISTRESS NOTED. STATES SHE HAD A GOOD DAY AND FEELS RESTED. REQUEST SLEEPING PILL AT HS. NO DISTRESS NOTED. CALL LIGHT IN REACH.
--- NOTE | 2018-12-10 00:52 | NUR ---
SLEEPING IN BED WITH RESPIRATIONS UNLABORED. NO DISTRESS NOTED. CALL LIGHT IN REACH.
--- NOTE | 2018-12-10 03:05 | NUR ---
RESTING IN BED WITH EYES CLOSED. RESPIRATIONS UNLABORED. NO DISTRESS NOTED. CALL LIGHT IN REACH.
--- NOTE | 2018-12-10 05:44 | NUR ---
ASSISTED TO BATHROOM AND BACK TO BED. HAD MEDIUM BM. QUIET HOURS. NO ACUTE CHANGES IN CONDITION THIS SHIFT.
[2018-12-10 06:38] LABS: BASOPHILS 0.1 % (0-2); EOSINOPHILS 2.1 % (0-7); HEMATOCRIT 36.5 % (36.0-48.0); HEMOGLOBIN 11.9 g/dL (12-16); IMMATURE GRANULOCYTES 3.3 % (0-5); LYMPHOCYTES 24.6 % (15-50); MCHC 32.6 g/dL (31.0-37.0); MCV 91.9 fL (80.0-100.0); MEAN PLATELET VOLUME 10.9 fL (7.4-10.4); MONOCYTES 5.9 % (2-11); PLATELET COUNT 218 10x3/uL (130-400); RBC 3.97 10x6/uL (4.00-5.40); RDW 14.3 % (11.5-14.5); WBC 12.9 10x3/uL (4.8-10.8)
[2018-12-10 07:03] LABS: CALC OSMOLALITY 280 mosm/kg (275-300); CALCIUM 8.2 mg/dL (8.5-10.1); CARBON DIOXIDE 36.1 mmol/L (21.0-32.0); CHLORIDE - SERUM 100 mmol/L (98-107); CREATININE - SERUM 0.7 mg/dL (0.6-1.3); GLUCOSE 72 mg/dL (74-106); POTASSIUM - SERUM 4.5 mmol/L (3.5-5.1); SODIUM 140 mmol/L (136-145); UREA NITROGEN 22 mg/dL (7-18); eGFR NON AFRICAN AMERICAN 86 mL/min (90-120)
[2018-12-10 07:47] VITALS: BP 134/63
--- NOTE | 2018-12-10 10:29 | NUR ---
PATIENT UP WITH THERAPY WITH NO NEEDS VOICED.
--- NOTE | 2018-12-10 14:35 | NUR ---
PATIENT ADMITTED TO REHAB FROM ACUTE FLOOR. SHE IS A CLIENT OF [facility] AT [facility] AND DME AT HOME IS A ROLLING WALKER. HER PCP IS DR. ADAMS. HER DISCHARGE PLANS ARE FOR HER TO RETURN HOME. WILL CONTINUE TO FOLLOW WITH PATIENT.
--- NOTE | 2018-12-10 19:00 | NUR ---
BEDSIDE REPORT COMPLETE. PT SITTING UP IN W/C VISITING WITH FAMILY. DENIES ANY NEEDS OR PAIN. NO SIGNS OF DISTRESS NOTED. CALL LIGHT AND WATER WITHIN REACH, FALL PRECAUTIONS IN PLACE. WILL CONTINUE TO MONITOR
[2018-12-10 20:59] VITALS: BP 125/73
--- NOTE | 2018-12-10 23:53 | NUR ---
QUIET HOURS. PT SITTING UP IN W/C WORKING CROSSWORD PUZZLE. DENIES ANY NEEDS
--- NOTE | 2018-12-11 02:35 | NUR ---
LYING IN BED EYES CLOSED RESTING QUIETLY.
--- NOTE | 2018-12-11 05:37 | NUR ---
SITTING UP IN BED VISITING WITH ROOMMATE. NO SIGNS OF DISTRESS NOTED.
--- NOTE | 2018-12-11 07:50 | NUR ---
AWAKE AND ALERT. BREAKFAST SERVED. NO DISTRESS NOTED. CL IN REACH. SITTING IN WC.
[2018-12-11 07:51] VITALS: BP 117/73
--- NOTE | 2018-12-11 12:54 | NUR ---
NO CHANGE IN ASSESSMENT. EATING LUNCH. VISITOR AT BS.
--- NOTE | 2018-12-11 13:29 | NUR ---
Nutrition Follow-up: Diet: Low cholesterol, low fat PO intake: 75-100%, reports good appetite Labs, meds, and skin assessment reviewed Wt: 210# (12/08/18) +BM RD Following
--- NOTE | 2018-12-11 14:17 | NUR ---
RESTING WITH EYES CLOSED. NO C/O PAIN.
--- NOTE | 2018-12-11 14:20 | NUR ---
PARTICIPATING IN THERAPY. NO C/O PAIN.
--- NOTE | 2018-12-11 16:49 | NUR ---
RESTING WO DISTRESS. CL IN REACH. RESP EVEN AND UNLABORED.
--- NOTE | 2018-12-11 16:49 | NUR ---
STILL IN DIALYSIS.
--- NOTE | 2018-12-11 18:50 | NUR ---
BEDSIDE REPORT COMPLETE. PT SITTING UP IN CHAIR ALERT AND ORIENTED X4 VISITING WITH FAMILY. DENIES ANY NEEDS OR PAIN. RR EVEN AND UNLABORED. CALL LIGHT AND WATER WITHIN REACH, FALL PRECAUTIONS IN PLACE. WILL CONTINUE TO MONITOR
[2018-12-11 20:52] VITALS: BP 114/74
--- NOTE | 2018-12-11 23:49 | NUR ---
QUIET HOURS. ASSISTED PT TO RESTROOM WITH SBA.
--- NOTE | 2018-12-12 04:10 | NUR ---
LYING IN BED EYES CLOSED RESTING QUIETLY
[2018-12-12 07:13] LABS: CALC OSMOLALITY 281 mosm/kg (275-300); CARBON DIOXIDE 34.6 mmol/L (21.0-32.0); CHLORIDE - SERUM 100 mmol/L (98-107); CREATININE - SERUM 0.6 mg/dL (0.6-1.3); GLUCOSE 78 mg/dL (74-106); POTASSIUM - SERUM 4.2 mmol/L (3.5-5.1); SODIUM 140 mmol/L (136-145); UREA NITROGEN 24 mg/dL (7-18); eGFR NON AFRICAN AMERICAN > 90 mL/min (90-120)
[2018-12-12 07:19] LABS: BASOPHILS 0.1 % (0-2); EOSINOPHILS 1.6 % (0-7); HEMATOCRIT 33.4 % (36.0-48.0); HEMOGLOBIN 10.8 g/dL (12-16); IMMATURE GRANULOCYTES 2.3 % (0-5); LYMPHOCYTES 26.1 % (15-50); MCH 29.6 pg (26.0-34.0); MCHC 32.3 g/dL (31.0-37.0); MCV 91.5 fL (80.0-100.0); MEAN PLATELET VOLUME 10.9 fL (7.4-10.4); MONOCYTES 6.8 % (2-11); NEUTROPHILS 63.1 % (40-80); PLATELET COUNT 213 10x3/uL (130-400); RBC 3.65 10x6/uL (4.00-5.40); RDW 14.6 % (11.5-14.5)
--- NOTE | 2018-12-12 07:26 | NUR ---
ALERT AND ORIENTED. NO C/O PAIN. CL IN REACH. RESP EVEN AND UNLABORED.
[2018-12-12 08:01] VITALS: BP 120/64
--- NOTE | 2018-12-12 13:04 | NUR ---
PARTICIPATING IN THERAPY TODAY.
--- NOTE | 2018-12-12 14:39 | RHP ---
PATIENT: ULYSSES ESTRADA MEDICAL RECORD: [id number] ACCOUNT: [id number] LOCATION:[facility] : [birth year] ADMISSION DATE: 12/07/18 REHABILITATION HISTORY AND PHYSICAL EXAMINATION POST ADMISSION PHYSICIAN EXAMINATION DATE OF ADMISSION: 12/07/2018 ADMITTING DIAGNOSIS: Chronic obstructive pulmonary disease. HISTORY OF PRESENT ILLNESS: The patient is admitted to the hospital from the ED on 11/29/2018. She presented via EMS with complaint of shortness of breath, weakness and productive cough. The patient states that the symptoms began 3 days prior to admission. She additionally states she has had some fever on and off. She was admitted to the medical floor for further evaluation and monitoring and treatment. She had a chest x-ray, which showed a mass-like consolidation at the right upper lobe, which was related to pneumonia or an underlying mass. Followup was recommended secondary to her symptomatology. She had pulmonary and cardiology consultation and she was found to have COPD with acute exacerbation, acute hypoxic respiratory failure. She was noted to have a right middle lobe pneumonia. She was treated with DuoNeb, Brovana/budesonide nebulizer, IV steroids, and antibiotics. Speech evaluation saw her to rule out aspiration versus community-acquired pneumonia. A modified barium swallow eval ruled out dysphagia or aspiration. She got a history of TIA, hypothyroidism, neuropathy, diabetes, COPD, chronic CPAP usage, back pain, and gouty arthritis. She has been doing some smoking on and off in the last 5 years and has some secondhand exposure. She got a history of pneumonia multiple times in the past, frequent bronchitis, possible childhood onset of asthma Previously, she was moderately independent with basic ADLs and mobility using a Rollator. Currently, she is min to max assist for ADLs and mobility. She tires easily, becomes dizzy, has increased dyspnea with exertion. She would like to regain her strength and hopefully return back home at her prior level of functioning. COMORBIDITIES: In this patient include a history of gout, hypothyroidism, hypertension, lower lobe pneumonia, questionable mass, hypoxic respiratory failure, aspiration versus community-acquired pneumonia. She has got a small right parapneumonic effusion. She got leukocytosis, history of CHF, chronic cough, allergic rhinitis, obstructive sleep apnea, diabetes, gastroesophageal reflux disease, hypoalbuminemia, debility, orthostatic hypotension, TIA, chronic back pain, anxiety and depression. PAST MEDICAL HISTORY: Significant for TIA, neuropathy, thyroid problems, hypertension, CHF, COPD, BiPAP, acid reflux, chronic back pain, gout, depression, and anxiety. PAST SURGICAL HISTORY: Includes hysterectomy. She has had a wrist surgery. She has had a breast lump removed. She has had exploratory D&C and shoulder surgery. ALLERGIES: ACETAMINOPHEN, CAFFEINE, MEPERIDINE, NEOMYCIN, X-RAY DYE, DEMEROL. CURRENT MEDICATIONS: Include prednisone, she is on a tapering dosage. She is on Aricept 10 mg q.h.s., Tessalon Perles 200 mg t.i.d., Aldactone 25 mg daily, potassium 10 mEq daily, nystatin cream to apply daily as needed, Cytotec 100 mcg q.i.d., Levaquin 500 mg daily, Mucinex-D 1 tab b.i.d., Neurontin 300 mg b.i.d., HISTORY AND PHYSICAL [id number] ULYSSES ESTRADA folic acid 0.8 mg daily, ferrous sulfate 325 daily, Pepcid 40 mg daily, enoxaparin 40 mg subQ daily, Colace 100 mg daily, B12 1000 mcg daily, colchicine 0.6 mg daily, clindamycin 600 b.i.d., citalopram 40 mg daily, Os-Hipolito D 500 mg daily, BuSpar 10 mg b.i.d., Bumex 2 mg b.i.d., aspirin 325 mg daily. She is on allopurinol 300 mg daily. She is on Zovirax to apply topically as needed. She is on a low-resistant sliding scale with insulin, Protonix 40 mg daily, Synthroid 200 mcg daily, promethazine 25 mg q. 6 hours p.r.n., DuoNeb updrafts, Viola 10/325 one tab every 4 hours as needed. HABITS: Does have a history of tobacco use. FAMILY HISTORY: Noncontributory. SOCIAL HISTORY: The patient hopes to return back home and get back to her prior level of functioning. REVIEW OF SYSTEMS: GENERAL: Does complain of weakness and fatigue. HEENT: Does complain of cold, cough, and congestion. CARDIOVASCULAR: Denies any chest pain. LUNGS: Does complain of shortness of breath with activity. PHYSICAL EXAMINATION: VITAL SIGNS: Stable. She is afebrile. GENERAL: A morbidly obese female in no acute distress, alert upon exam. HEENT: Normocephalic and atraumatic. Mucosa moist. NECK: Supple. No lymphadenopathy. LUNGS: Coarse breath sounds in the upper regions and decreased breath sounds at both bases. HEART: Regular rate and rhythm. ABDOMEN: Soft, benign, and nondistended. Positive bowel sounds times 4. EXTREMITIES: No clubbing, cyanosis or edema. NEUROLOGIC: She does have noted weakness in her lower extremities of 3/5. LABORATORY DATA: Admit white count is 11,700. Her hemoglobin and hematocrit 12 and 36 and platelet count was noted to be 185. Sodium 141, potassium 4.5, BUN and creatinine of 23 and 0.8, blood sugar is noted to be 99. ASSESSMENT: This 73-year-old female patient admitted to rehab with a working diagnosis of debility secondary to acute exacerbation of chronic obstructive pulmonary disease. The patient has potential to make improvement. We instituted the following multidisciplinary therapies including but not limited to physical, occupational, respiratory, speech, nutritional services, prosthetics and orthotics. Given her complex medical conditions and risks for more complications, rehabilitation services cannot be provided at a low level of care such as skilled nurse facility. PLAN: 1. Admit to [facility] for intensive inpatient therapy to include the following disciplines: A. Physical therapy to improve gait, all transfer skills and bed mobility to a modified independent level. B. Occupational therapy to a modified independent level. HISTORY AND PHYSICAL [id number] ULYSSES ESTRADA. Case management to assist with discharge planning and placement options. D. Nutrition to assist with nutritional needs. E. Rehabilitation nursing to assist in monitoring the underlying medical conditions and to assist with any type of bowel or bladder management. 2. The patient's current medication and medical care will be continued. 3. The patient will be placed on standard fall precautions. 4. The patient's estimated length of stay is approximately 7-10 days. 5. We will discuss the patient during the care team staff meeting this week. TRANSINT:[id number] Voice Confirmation ID: [id number] DOCUMENT ID: [id number] ANA PAULA notes whether there has been none or any medical/functional change since admission: - No change since preadmission screen. ANA PAULA attests patient continues to be appropriate for IRF: - Continues to be appropriate. NNAETTE LUONG MD at 1439 CC: [id number] DICTATION DATE: 12/08/18 1708 MICA PARTS SPRAYER: 12/08/18 191 ADM IN [place] [id number] [place] [id number]
--- NOTE | 2018-12-12 15:36 | NUR ---
NO CHANGE IN ASSESSMENT. IN BED TALKING ON PHONE. CL IN REACH. NO DISTRESS NOTED.
[2018-12-12 19:15] VITALS: BP 117/73
--- NOTE | 2018-12-12 19:58 | NUR ---
AWAKE AND ALERT. RESTINGIN BED. RESPIRATIONS UNLABORED. NO DISTRESS NOTED. CALL LIGHT IN REACH.
--- NOTE | 2018-12-13 00:59 | NUR ---
RESTING IN BED WITH RESPIRTIONS UNLABORED. NO DISTRESS NOTED. CALL LIGHT IN REACH.
--- NOTE | 2018-12-13 02:56 | NUR ---
RESTING IN BED WITH EYES CLOSED AND RESPIRATIONS UNLABORED. NO DISTRESS NOTED. CALL LIGHT IN REACH.
--- NOTE | 2018-12-13 05:22 | NUR ---
AWAKE AND ALERT. ASSISTED TO BATHROOM AND BACK TO BED. NO ACUTE CHANGES IN CONDITION THIS SHIFT. IS ABLE TO USE RIGHT ARM MORE THAN FIRST DAY OF ADMISSION. SHE STATES "ITS SO MUCH BETTER NOW". NO DISTRESS NOTED. CALL LIGHT IN REACH.
[2018-12-13 08:00] VITALS: BP 136/67
--- NOTE | 2018-12-13 19:33 | NUR ---
AWAKE AND ALERT. SITTING IN WHEELCHAIR IN ROOM WITH SPEECH THERAPY PRESENT. RESPIRATIONS UNLABORED. NO ACUTE DISTRESS NOTED. CALL LIGHTIN REACH.
[2018-12-13 20:00] VITALS: BP 126/77
--- NOTE | 2018-12-14 01:35 | NUR ---
RESTING IN BED WITH RESPIRATIONS UNLABORED. NO DISTRESS NOTED. CALL LIGHT IN REACH.
--- NOTE | 2018-12-14 05:23 | NUR ---
QUIET HOURS. NO ACUTE CHANGES IN CONDITION THIS SHIFT. NO DISTRESS NOTED.
[2018-12-14 07:50] LABS: BASOPHILS 0.2 % (0-2); EOSINOPHILS 1.2 % (0-7); HEMOGLOBIN 11.1 g/dL (12-16); IMMATURE GRANULOCYTES 1.3 % (0-5); LYMPHOCYTES 30.8 % (15-50); MCHC 32.6 g/dL (31.0-37.0); MCV 91.9 fL (80.0-100.0); MEAN PLATELET VOLUME 10.9 fL (7.4-10.4); NEUTROPHILS 59.5 % (40-80); PLATELET COUNT 223 10x3/uL (130-400)
[2018-12-14 07:51] LABS: ANION GAP 7.3 mmol/L (8-16); CALCIUM 8.5 mg/dL (8.5-10.1); CARBON DIOXIDE 35.9 mmol/L (21.0-32.0); CREATININE - SERUM 0.8 mg/dL (0.6-1.3); POTASSIUM - SERUM 3.2 mmol/L (3.5-5.1)
[2018-12-14 08:00] VITALS: BP 117/66
[2018-12-14] MEDS ORDERED: HYDROCODON-ACE1 EA10 PO (08:27)
--- NOTE | 2018-12-14 10:17 | NUR ---
PATIENT DISCHARGING HOME TODAY. MADIE AT HOME WILL RESUME THERAPY AT HOME. NO NEW DME NEEDED AT THIS TIME. DR. RENU ADAMS 12/20/18 @ 1:15. PATIENT CHOICE FORM AND IMFM FORM SIGNED, COPY GIVEN TO PATIENT AND FILED IN CHART. DISCHARGE INSTRUCTIONS WITH FIM DATA FAXED TO PCP, HOME HEALTH AND REVIEWED WITH PATIENT.
--- NOTE | 2018-12-14 14:05 | NUR ---
PT DISCHARGED HOME WITH FRIEND. MEDICATIONS CALLED IN TO PHARMACY ([facility]). PT STATES UNDERSTANDING OF DISCHARGE INSTRUCTIONS AND MEDS.
== END 2018-12-14 14:06 | disposition home health service (06) | DRG 947 ==
LOC: D.REHAB 17:48
PROVIDERS: ADMIT Emergency Medicine; ATTEND Emergency Medicine
DX: R53.81 Other malaise (principal); J18.1 Lobar pneumonia, unspecified organism; J96.01 Acute respiratory failure with hypoxia; J44.1 Chronic obstructive pulmonary disease with (acute) exacerbation; J98.11 Atelectasis; M10.9 Gout, unspecified; E03.9 Hypothyroidism, unspecified; I50.9 Heart failure, unspecified; D72.819 Decreased white blood cell count, unspecified; R05 Cough; G47.33 Obstructive sleep apnea (adult) (pediatric); E11.9 Type 2 diabetes mellitus without complications; K21.9 Gastro-esophageal reflux disease without esophagitis; F41.8 Other specified anxiety disorders; G89.29 Other chronic pain; E11.65 Type 2 diabetes mellitus with hyperglycemia; Z91.19 Patient's noncompliance with other medical treatment and regimen; I95.1 Orthostatic hypotension; J30.9 Allergic rhinitis, unspecified

== ENCOUNTER → 2019-02-13 09:31 | Outpatient (CLI) | payer MEDICARE, BC, MEDICAID ==
[2018-12-08 12:08] VITALS: BMI 36.0
== END | disposition home or self-care (01) ==
LOC: D.RT 09:31
PROVIDERS: ATTEND Internal Medicine Pulmonary Disease
DX: J44.9 Chronic obstructive pulmonary disease, unspecified (principal); J18.9 Pneumonia, unspecified organism

== ENCOUNTER → 2019-12-20 10:53 | Outpatient (CLI) | payer MEDICARE, MEDICAID ==
[2018-12-08 12:08] VITALS: BMI 36.0
== END | disposition home or self-care (01) ==
LOC: D.LAB 10:53
PROVIDERS: ATTEND Internal Medicine Pulmonary Disease
DX: Z11.59 Encounter for screening for other viral diseases (principal)